=== PATIENT | female | born 1965 | race Caucasian/White ===

== ENCOUNTER 2016-12-12 10:04 | Emergency (ER) | payer MEDICAID ==
--- NOTE | 2016-12-12 10:59 | XRAY Preliminary Report ---
Exam: XR Chest 2 View PA/LAT IMPRESSION: Normal 2-view chest radiography. [facility] SITE ID: [id number]
--- NOTE | 2016-12-12 11:02 | XRAY Report ---
EXAM: CHEST RADIOGRAPHY EXAM DATE: 12/12/2016 10:42 AM. CLINICAL HISTORY: Chest tightness. COMPARISON: None. TECHNIQUE: 2 views. FINDINGS: Lungs/Pleura: No focal opacities evident. No pleural effusion. No pneumothorax. Normal volumes. Mediastinum: Heart and mediastinal contours are unremarkable. Other: None. IMPRESSION: Normal 2-view chest radiography. [facility] Referring Provider Line: [phone] SITE ID: [id number]
[2016-12-12 11:41] LABS: BASOPHILS # (AUTO) 0.1 10^3/uL (0.0-0.1); BASOPHILS % (AUTO) 0.7 %; EOSINOPHILS # (AUTO) 0.2 10^3/uL (0.0-0.7); EOSINOPHILS % (AUTO) 2.2 %; HCT - HEMATOCRIT 39.4 % (37.0-47.0); HGB - HEMOGLOBIN 13.4 g/dL (12.0-16.0); LYMPHOCYTES # (AUTO) 2.6 10^3/uL (1.5-3.5); LYMPHOCYTES % (AUTO) 32.4 %; MEAN CORPUSCULAR HEMOGLOBIN 30.8 pg (27.0-31.0); MEAN CORPUSCULAR VOLUME 90.5 fL (81.0-99.0); MONOCYTES # (AUTO) 0.7 10^3/uL (0.0-1.0); NEUTROPHILS # (AUTO) 4.5 10^3/uL (1.5-6.6); NEUTROPHILS % (AUTO) 55.7 %; RED BLOOD COUNT 4.36 10^6/uL (4.20-5.40); RED CELL DISTRIBUTION WIDTH 12.6 % (12.0-15.0); UNCORRECTED WHITE BLOOD COUNT 8.1 x10^3/uL; WHITE BLOOD COUNT 8.1 x10^3/uL (4.8-10.8)
[2016-12-12] MEDS ORDERED: MECLIZINE 12.5 MG TABLET PO STA (12:08)
[2016-12-12] MEDS ORDERED: MECLIZINE 12.5 MG TABLET PO ONE (12:24)
[2016-12-12 13:00] LABS: ALBUMIN/GLOBULIN RATIO 1.2 (1.0-2.2); BILIRUBIN,TOTAL 0.6 mg/dL (0.2-1.0); CALCIUM 9.3 mg/dL (8.5-10.3); CREATININE 0.6 mg/dL (0.4-1.0); TOTAL PROTEIN 7.7 g/dL (6.7-8.2)
--- NOTE | 2016-12-12 13:19 | ED Physician Documentation ---
History of Present Illness - Stated complaint Stated Complaint: CHEST PAIN,DIZZINESS - Chief complaint Chief Complaint: General - Additonal information Additional information: hx from pt 51 female with hx asthma 4 days of mild chest heaviness and soa little diff than her asthma and her mother developed CAD at age 55 so she wanted to be checked and make sure it isnt her heart no fever cough no abd or back pain no leg swelling non smoker also developed dizziness today Review of Systems Constitutional: denies: Fever, Chills Cardiac: reports: Chest pain / pressure Respiratory: reports: Dyspnea. denies: Cough GI: denies: Abdominal Pain, Nausea, Vomiting Musculoskeletal: denies: Extremity swelling Endocrine: denies: Easy bruising / bleeding Immunocompromised: denies: Immunocompromised PD PAST MEDICAL HISTORY - Past Medical History Past Medical History: Yes Respiratory: Asthma Psych: Depression - Present Medications Home Medications: Ambulatory Orders Medication Instructions Recorded Confirmed Fluoxetine HCl [Prozac] 20 mg PO 12/12/16 Meclizine [Antivert] 25 mg PO Q6H PRN #20 tablet 12/12/16 - Allergies Allergies/Adverse Reactions: Allergies Allergy/AdvReac Type Severity Reaction Status Date / Time Penicillins Allergy Unknown Verified 12/12/16 10:13 Sulfa (Sulfonamide Allergy Unknown Verified 12/12/16 10:13 Antibiotics) - Social History Does the pt smoke?: No Smoking Status: Never smoker PD ED PE NORMAL - Vitals Vital signs reviewed: Yes - General General: Alert and oriented X 3 - HEENT HEENT: PERRL, EOMI (nystagmus looking left) - Cardiac Cardiac: RRR - Respiratory Respiratory: No respiratory distress, Clear bilaterally - Abdomen Abdomen: Soft, Non tender - Derm Derm: Normal color - Extremities Extremities: No tenderness to palpate, Normal ROM s pain, No edema, No calf tenderness / cord - Neuro Neuro: Alert and oriented X 3 Results - Vitals Vitals: Vital Signs - 24 hr 12/12/16 10:11 Temperature 36.2 C L Heart Rate 75 Respiratory 18 Rate Blood Pressure 131/89 H O2 Saturation 99 - EKG (time done) 1024 Rate: Rate (enter#) Rhythm: NSR (68) [place]: Normal Intervals: Normal DC Ischemia: Normal ST segments - Labs Labs: Laboratory Tests 12/12/16 12/12/16 12/12/16 11:24 11:24 11:24 WBC 8.1 RBC 4.36 Hgb 13.4 Hct 39.4 MCV 90.5 MCH 30.8 MCHC 34.0 RDW 12.6 Plt Count 179 MPV 9.0 Neut # 4.5 Lymph # 2.6 Ada # 0.7 Eos # 0.2 Baso # 0.1 Absolute Nucleated RBC 0.00 Nucleated RBCs 0.0 Sodium 138 Potassium 4.0 Chloride 106 Carbon Dioxide 25 Anion Gap 7.0 BUN 12 Creatinine 0.6 Estimated GFR (MDRD) 105 Glucose 97 Calcium 9.3 Total Bilirubin 0.6 AST 32 ALT 33 Alkaline Phosphatase 68 Troponin I < 0.04 Total Protein 7.7 Albumin 4.2 Globulin 3.5 Albumin/Globulin Ratio 1.2 Lipase 42 - Rads (name of study) CXR Radiology: See rad report (NACPD) PD MEDICAL DECISION MAKING - ED course ED course: neg EKG and CXR PERC neg except for age will reassure and dc Departure - Departure Disposition: 01 Home, Self Care Clinical Impression: Vertigo Chest pain Qualifiers: Chest pain type: unspecified Qualified Code(s): R07.9 - Chest pain, unspecified Condition: Good Instructions: ED Vertigo Unspecified, ED Chest Pain Atypical Unkn Cause Follow-Up: Rodrick Nix MD [Primary Care Provider] - Prescriptions: Meclizine [Antivert] 25 mg PO Q6H PRN #20 tablet PRN Reason: Dizziness Comments: Your heart checked out fine - the EKG and the blood work for your heart were fine Your xray does not show any lung disease or signs of an aortic problem. And your history and exam do not suggest a blood clot in your lung I am not certain why you have chest discomfort but given the reassuring work up it seems safe to let you go home For the dizziness I have prescribed meclizine and you can try the exercises we gave your instructions for Please follow up with your PMD for to recheck your blood pressure
[2016-12-12 13:56] VITALS: BP 136/96
== END 2016-12-12 13:40 | disposition home or self-care (01) ==
LOC: ED 10:04
DX: R42 Dizziness and giddiness (principal); R07.9 Chest pain, unspecified
CPT/HCPCS: 36415; 71020; 80053; 83690; 84484; 85025; 93005; 99283; 99284; A9270